=== PATIENT | male | born 1990 | race Caucasian/White ===

== ENCOUNTER 2016-10-07 12:43 | Emergency (ER) | payer OTHER ==
[~2016-10-07] VITALS: Ht 170.2 cm; Wt 81.8 kg
[2016-10-07 13:23] VITALS: BP 119/75; PULSE 84; RESP 15; O2SAT 99
[2016-10-07 15:17] LABS: APPEARANCE,URINE CLEAR (CLEAR,HAZY); COLOR,URINE DARK YELLOW (YELLOW); OCCULT BLOOD,URINE NEGATIVE (NEGATIVE); UROBILINOGEN,URINE NORMAL (NORMAL)
[2016-10-07 15:30] VITALS: BP 147/82; PULSE 65; RESP 16; O2SAT 99
[2016-10-07 15:45] LABS: BASOPHILS % (AUTO) 0.5 % (0-3); EOSINOPHILS % (AUTO) 0.8 % (0-5); MONOCYTES % (AUTO) 8.7 % (4-12); Mean Corpuscular Hemoglobin 30.2 pg (27.0-35.0); Mean Corpuscular Volume 86.8 fL (81-100); NEUTROPHILS % (AUTO) 63.7 % (40-74); Platelet Count 336 bil/L (150-400)
[2016-10-07 16:11] LABS: Magnesium 2.1 mg/dL (1.6-2.6)
--- NOTE | 2016-10-07 16:48 | ED.REPORT ---
HPI-NVD Date of Service Oct 07, 2016 ED Provider: Cristi Carrion PA-C Given this otherwise healthy 22 for a male who presents with a chief complaint of nausea and vomiting that began approximately 24 hours ago. Associated with a mild frontal headache and cough. Denies abdominal pain but admits to a crampy sensation. Denies travel, unusual food, fever, chills, malaise, difficulty breathing, chest pain, back pain. Nursing Notes Stated Complaint: STOMACH PROBLEMS Chief Complaint: nausea and vomiting Nursing Notes Reviewed: Yes Allergies: Coded Allergies: Sulfa (Sulfonamide Antibiotics) (Verified Allergy, Intermediate, Rash, ) Scheduled Ondansetron ODT (Ondansetron ODT) 4 Mg Tab.rapdis 4-8 MG PO QID General Time Seen by MD: 16:20 Chief Complaint Vomiting Past Medical History Past Medical History Denies Review of Systems Review of Systems Note: Negative unless stated otherwise in history of present illness Physical Exam General: Well appearing, well developed, well nourished, no acute distress. Head: Atraumatic, normocephalic. Eyes: No scleral icterus or injection. No discharge. Vision grossly intact. ENT: Voice clear, hearing grossly intact. Respiratory: Regular rate and rhythm. Breath sounds present, clear to auscultation and equal bilaterally. No respiratory distress. No increased work of breathing, speaks in complete sentences. Cardiovascular: Regular rate and rhythm, without murmur, gallop or rub. No pedal edema. Gastrointestinal: Abdomen flat and non-tender without guarding or rebound. Bowel sounds normoactive. Skin: Warm and dry. Neurological: Grossly nonfocal. Psychological: Alert and oriented. Speech appropriate, linear and logical. Behavior appropriate. Initial Vital Signs Vital Signs (First) Date Time Temp Pulse Resp B/P Pulse Ox O2 Delivery O2 Flow Rate FiO2 10/07/16 13:23 36.7 84 15 119/75 99 Room Air Initial VS: Reviewed, Vital signs normal Interpretation & Diagnostics Lab Results Interpretation Result Diagram: 10/07/16 1539 10/07/16 1539 Test 10/07/16 14:00 10/07/16 15:06 10/07/16 15:39 Hold Urine Received (Received) Urine Color Dark yellow (YELLOW) Urine Appearance Clear (CLEAR,HAZY) Urine pH 7.0 (5.0-8.0) Urine Specific [place] 1.020 (1.003-1.035) Urine Protein Negativemg/dL (NEG,TRACE) Urine Glucose (UA) Negativemg/dL (NEGATIVE) Urine Ketones Negativemg/dL (NEGATIVE) Urine Occult Blood Negative (NEGATIVE) Urine Nitrite Negative (NEGATIVE) Urine Bilirubin Negative (NEGATIVE) Urine Urobilinogen Normalmg/dL (NORMAL) Urine Leukocyte Esterase Negative (NEGATIVE) Urine RBC 0-2/hpf (0-2) Urine WBC 0-5/hpf (0-5) Urine Epithelial Cells Occasional/hpf (NONE-MOD) Urine Crystals None seen (NONE SEEN) Urine Bacteria Few/hpf (NONE-FEW) Urine Hyaline Casts None/lpf (NONE) Urine Granular Casts None seen (NONE SEEN) Urine Waxy Casts None seen (NONE SEEN) Urine Red Blood Cell Casts None seen (NONE SEEN) Urine White Blood Cell Casts None seen (NONE SEEN) Urine Mucus Present (None Seen) Urine Trichomonas None seen (NONE SEEN) Urine Yeast None (NONE SEEN) Urinalysis Comment None Urine Culture Reflexed Not indicated White Blood Count 9.9th/mm3 (3.8-10.1) Red Blood Count 5.14mil/mm3 (4.40-5.80) Hemoglobin 15.5g/dL (13.8-17.2) Hematocrit 44.6% (41.0-50.0) Mean Corpuscular Volume 86.8fL (81-100) Mean Corpuscular Hemoglobin 30.2pg (27.0-35.0) Mean Corpuscular Hemoglobin Concent 34.8% (32.0-37.0) Red Cell Distribution Width 12.6% (12.3-15.4) Platelet Count 336bil/L (150-400) Neutrophils (%) (Auto) 63.7% (40-74) Lymphocytes (%) (Auto) 26.1% (14-46) Monocytes (%) (Auto) 8.7% (4-12) Eosinophils (%) (Auto) 0.8% (0-5) Basophils (%) (Auto) 0.5% (0-3) Sodium Level 140mEq/L (134-144) Potassium Level 3.8mEq/L (3.5-5.2) Chloride Level 104mEq/L (97-108) Carbon Dioxide Level 18mmol/L (18-29) Blood Urea Nitrogen 14mg/dL (6-20) Creatinine 0.81mg/dL (0.76-1.27) Estimat Glomerular Filtration Rate 124mL/min (>59) Glucose Level 94mg/dL (60-99) Calcium Level 9.4mg/dL (8.5-10.1) Magnesium Level 2.1mg/dL (1.6-2.6) Total Bilirubin 1.9mg/dL (0.0-1.2) Aspartate Amino Transf (AST/SGOT) 33U/L (0-50) Alanine Aminotransferase (ALT/SGPT) 57U/L (0-44) Alkaline Phosphatase 66U/L (25-150) Total Protein 7.6g/dL (6.4-8.4) Albumin 4.9g/dL (3.4-5.0) Lipase 34U/L (13-60) Hold Forde Top Tube Received (Received) Re-Eval/Medical Decision Med Decision/Clinical Course Otherwise healthy 26-year-old male presents with chief complaint of nausea and vomiting this last approximately 24 hours. History and physical are reassuring as well as CBC, CMP and urinalysis. I believe this is a viral gastritis and have little concern for ulcer, perforation, cholecystitis, pancreatitis, cardiac etiology. Prescribed ondansetron, advised bland diet, primary care follow-up, provided emergency return precautions. Patient understands and agrees with plan Discharge & Departure Impression: Primary Impression: Gastritis Disposition: Home Discharge Condition All VS Reviewed: Yes Condition: Stable Patient Instructions: Gastritis (ED) Additional Instructions: Evaluation in the emergency department for nausea and vomiting. History and physical as well as blood work and urinalysis are reassuring that this is not likely to be an ulcer, gallbladder infection, pancreatitis but is most likely gastritis, a benign condition that should resolve on its own in a few days. I will give a prescription for ondansetron (Zofran) to help with the nausea. Take as needed up to 4 times a day. Hydration is the crawford. I recommend apple juice cut 50-50 with water taken in small amounts throughout the day. I recommend a bland, mild diet. Follow-up with your primary care provider if your symptoms persist more than a few days. Return to emergency department for new or worsening symptoms including increasing pain, fever, black/tarry stool or vomiting but does not respond to medication. Referrals: OTHER,PHYSICIAN (PCP) Jerzy Ortega EDSupervising Provider for APC: Ricardo Martinez MD, Seth PA-C Oct 07, 2016 16:47
[2016-10-07] MEDS ORDERED: ONDA4TAB12 PO (16:49)
[2016-10-07] MEDS ORDERED: Ondansetron 8 mg ODT Tablet PO ONE (16:50)
[2016-10-07 17:02] VITALS: BP 143/86; PULSE 83; RESP 16; O2SAT 98
== END 2016-10-07 16:49 | disposition home or self-care (01) ==
LOC: SED 12:43
DX: K29.70 Gastritis, unspecified, without bleeding (principal); R51 Headache; R05 Cough; Z88.1 Allergy status to other antibiotic agents